=== PATIENT | female | born 1960 ===

== ENCOUNTER 2016-07-22 14:54 | Outpatient (CLI) | payer OTHER ==
--- NOTE | 2016-07-22 18:40 | DIAGNOSTIC IMAGING REPORT ---
PROCEDURE: XR CHEST 2 VIEW INDICATION: BACK PX TECHNIQUE: PA and lateral view. COMPARISON: Chest x-ray 10/04/2010 FINDINGS: Lungs are clear. Cardiovascular structures are normal. Moderate degenerative changes of the spine. No significant interval change. IMPRESSION: 1. Negative chest.
--- NOTE | 2016-07-22 18:43 | DIAGNOSTIC IMAGING REPORT ---
PROCEDURE: XR THORACIC SPINE 3 VIEWS INDICATION: BACK PX TECHNIQUE: Three views. COMPARISON: None. FINDINGS: Mild dextroscoliosis with moderate degenerative changes. Normal alignment without fracture. Paraspinal soft tissues are normal. IMPRESSION: 1. Mild dextroscoliosis with moderate degenerative changes
--- NOTE | 2016-07-22 18:52 | DIAGNOSTIC IMAGING REPORT ---
PROCEDURE: XR CERVICAL SPINE 4 OR 5 VIEW INDICATION: LEFT ARM PAIN TECHNIQUE: Five views. COMPARISON: None. FINDINGS: There is spondylosis at C5-6 with the disc space narrowing and spur formation. No evidence of an acute process or fracture. Neural foramina are normal. IMPRESSION: 1. Spondylosis C5-6. No foraminal impingement.
== END 2016-07-22 23:00 ==
LOC: XR SRH 14:54
DX: M51.34 Other intervertebral disc degeneration, thoracic region (principal); M50.323 Other cervical disc degeneration at C6-C7 level; M50.31 Other cervical disc degeneration, high cervical region; M79.602 Pain in left arm

== ENCOUNTER 2016-10-12 14:28 | Outpatient (CLI) | payer OTHER ==
--- NOTE | 2016-10-12 15:17 | DIAGNOSTIC IMAGING REPORT ---
PROCEDURE: XR KNEE 3 VIEWS - RIGHT INDICATION: RT KNEE PAIN TECHNIQUE: Four views. COMPARISON: None. FINDINGS: Mild right patellofemoral compartment degenerative changes. No fracture or dislocation. There is a small suprapatellar effusion. IMPRESSION: 1. Small effusion which may indicate internal derangement 2. Mild patellofemoral compartment degenerative changes
--- NOTE | 2016-10-12 15:43 | DIAGNOSTIC IMAGING REPORT ---
PROCEDURE: US VENOUS - RIGHT EXT INDICATION: RLE PAIN,R/O DVT TECHNIQUE: Duplex sonography of the deep venous system in the right lower extremity was performed. Compression and augmentation techniques were used. COMPARISON: None. FINDINGS: Normal compression of the greater saphenous, common femoral, superficial femoral, popliteal, peroneal, and posterior tibial veins. Normal augmentation. There is no evidence of superficial or deep venous thrombosis. IMPRESSION: 1. Negative venous ultrasound of the right lower extremity. 2. Results discussed with Yuri Lainez.
== END 2016-10-12 23:00 ==
LOC: US SRH 14:28
DX: M79.661 Pain in right lower leg (principal); M25.461 Effusion, right knee

== ENCOUNTER 2016-11-10 13:30 | Emergency (ER) | payer OTHER ==
--- NOTE | 2016-11-10 14:00 | DIAGNOSTIC IMAGING REPORT ---
PROCEDURE: XR CHEST 1 VIEW INDICATION: CHEST PAIN TECHNIQUE: Portable AP view 01:51 p.m. COMPARISON: Chest 07/22/2016 and 10/04/2010 FINDINGS: Lungs are clear. Heart and mediastinum are normal. Thorax is normal. IMPRESSION: 1. Negative chest.
--- NOTE | 2016-11-10 17:15 | ED CLINICAL REPORT ---
Clinical Report - Phys[facility] [address] [place] [address] 11/10/2016 13:30 Patient: LIA WEIR Time Seen: 1333; upon arrival, initial patient contact, initial documentation, patient care assumed. Arrived- By ambulance. Historian- patient and EMS personnel. HISTORY OF PRESENT ILLNESS Chief Complaint: CHEST PAIN and DISCOMFORT. At its maximum, severity described as moderate. When seen in the E.D., severity described as moderate. Modifying factors. Not worsened by anything. Not relieved by anything. This started today about 2 hours ago BREAKDOWN PERSON and is still present. Onset during rest. It is described as pressure and tightness and it is described as located in the central chest and left chest area. No radiation. No nausea, vomiting or diaphoresis. She has had mild difficulty breathing. No additional chest pain. (was riding in car to drs office for trouble breathing and anxiety, and chest started to hurt, so 911 called). Similar symptoms previously: None. Recent medical care: Not recently seen/assessed. REVIEW OF SYSTEMS All systems otherwise negative, except as recorded above. PAST HISTORY See nurses notes. PROBLEMS: Abdominal Pain. Immunizations. Contusion. Back Pain. LNMP - Last Normal Menstrual Period. Anxiety Reaction. Superficial Thrombophlebitis. --13:47 Pj La R.N. Abdominal Muscle Strain [RuleOut]. --13:47 Pj La R.N. SOCIAL HISTORY Never smoker. No recent travel. Is a local resident. She lives with spouse. FAMILY HISTORY Negative. ADDITIONAL NOTES The nursing notes have been reviewed with agreement regarding the chief complaint, HPI, ROS, PMH and patient medications and allergies. PHYSICAL EXAM Vital Signs: 11/10/2016 13:41 BP: 140/83. HR: 80. RR: 18. O2 saturation: 99%. Have been reviewed as normal and appear to be correct. Appearance: Alert. Oriented X3. No acute distress. Eyes: Pupils equal, round and reactive to light. Eyes normal inspection. Neck: Normal inspection. Neck supple. CVS: Normal heart rate and rhythm. Heart sounds normal. Pulses normal. Respiratory: No respiratory distress. Breath sounds normal. Chest nontender. Abdomen: Soft and nontender. Back: Normal external inspection. Skin: Skin warm and dry. Normal skin color. No rash. Normal skin turgor. Extremities: Extremities exhibit normal ROM. No lower extremity edema. Neuro: Oriented X 3. No motor deficit. No sensory deficit. LABS, X-RAYS, AND EKG EKG: EKG time: (1352). No acute process. No acute ischemia. Normal EKG. Rate: 82. The study has been interpreted contemporaneously by me (and Dr Sewell). The EKG appears to be a good tracing. Interpretation time: 1354. Chest X-ray: Normal Chest X-Ray. (IMPRESSION: 1. Negative chest. Electronically Final signed by:Dominic Bartholomew MD 11/10/2016 2:00:32 PM). The X-rays were interpreted by the radiologist and contemporaneously by me. Laboratory Tests: UA-Culture if indicated: (ALLY: 11/10/2016 14:15) ( MsgRcvd 11/10/2016 14:56) Final results Test Result Flag Units (Reference) URINE COLOR STRAW URINE APPEARANCE CLEAR URINE GLUCOSE NEGATIVE (NEGATIVE) URINE BILIRUBIN NEGATIVE (NEGATIVE) URINE KETONE NEGATIVE (NEGATIVE) URINE SPECIFIC GRAVITY 1.010 (1.010-1.030) URINE PH 7.5 (5.0-8.0) URINE PROTEIN NEGATIVE (NEGATIVE) URINE UROBILINOGEN 0.2 EU/dL (0.2-1.0) URINE NITRITE NEGATIVE (NEGATIVE) URINE BLOOD TRACE-INTACT (NEGATIVE) URINE LEUK ESTERASE NEGATIVE (NEGATIVE) URINE RBC 0-1 rbc/hpf (0-1) URINE WBC RARE wbc/hpf (0-1) URINE EPITHELIAL CELLS 0-1 EPI/hpf (0-5) URINE BACTERIA NONE SEEN (NONE SEEN) URINE COMMENT CULT NOT INDICATED URINE CULTURES ARE SET-UP BASED ON THE FOLLOWING CRITERIA:POSITIVE NITRITEPOSITIVE LEUKOCYTE ESTERASEGREATER THAN 10 WHITE BLOOD CELLSMODERATE (2+) OR GREATER BACTERIA Serum Qualitative: (ALLY: 11/10/2016 14:00) ( [facility] 11/10/2016 14:26) Final results Test Result Flag Units (Reference) , SERUM NEGATIVE CBC w Diff: (ALLY: 11/10/2016 14:00) ( [facility] 11/10/2016 14:17) Final results Test Result Flag Units (Reference) WHITE BLOOD COUNT 7.6 K/uL (4.5-11.5) RED BLOOD COUNT 4.59 M/uL (4.00-5.20) HEMOGLOBIN 13.3 gm/dL (12.0-16.0) HEMATOCRIT 40.0 % (36.0-46.0) MEAN CELL VOLUME 87 fL (80-100) MEAN CORPUSCULAR HGB 29 pg (26-34) MEAN CORPUSCULAR HGB CONC 33 g/dL (31-37) RED CELL DISTRIBUTION WIDTH 12.8 % (11.6-14.8) PLATELET COUNT 278 K/uL (150-400) NEUTROPHIL % 52.0 % (50-75) LYMPH % 30.0 % (25-40) MONO % 4.6 % (3-14) EOSINOPHIL % 12.9 H % (0-4) BASOPHIL % 0.5 % (0-2) [id number]: (ALYL: 11/10/2016 14:00) ( [facility] 11/10/2016 14:27) Final results Test Result Flag Units (Reference) D-DIMER QUANTITATIVE < 0.27 L ug/mLFEU (0.27-0.52) The primary value of this quantitative assay relates toits negative predictive value (i.e. exclusion) of pulmonaryembolism/deep vein thrombosis/DIC.Elevated levels of d-dimer may also occur with:, age, cancer, inflammation, liver disease,post-op, infection, hematoma, coronary disease, peripheralarteriopathy, bleeding disorders and thrombolytic treatment.Results should be correlated with other clinical andradiological data.Testing Methodology: Latex Immunoassay CPK: (ALLY: 11/10/2016 16:30) ( [facility] 11/10/2016 17:05) Final results Test Result Flag Units (Reference) CPK 84 U/L (24-260) TROPONIN I <0.05 ng/mL (0.00-1.5) TROPONIN REFERENCE RANGE:<0.1 NEGATIVE0.1-1.5 INDETERMINANT>1.5 POSITIVE CMP: (ALLY: 11/10/2016 14:00) ( MsgRcvd 11/10/2016 14:38) Final results Test Result Flag Units (Reference) GLUCOSE 95 mg/dL (70-110) BUN 14 mg/dL (7-18) CREATININE 0.6 mg/dL (0.6-1.3) Estimated GFR >60 mL/min Estimated GFR- >60 mL/min Note: Persistent reduction over 3 months in eGFR<60 mL/min/1.73 m2 defines CKD. Patients with eGFR values>=60 mL/min/1.73 m2 may also have CKD if evidence ofpersistent proteinuria. Additional information may be foundat [email or web address].org. SODIUM 144 mmol/L (136-145) POTASSIUM 3.7 mmol/L (3.5-5.1) CHLORIDE 109 H mmol/L (98-107) CARBON DIOXIDE 24 mmol/L (21-32) CALCIUM 8.7 mg/dL (8.5-10.1) TOTAL PROTEIN 7.7 g/dL (6.4-8.2) ALBUMIN 3.7 g/dL (3.3-5.0) BILIRUBIN, TOTAL 0.3 mg/dL (0.0-1.0) ALKALINE PHOSPHATASE 106 U/L (46-116) AST (SGOT) 19 U/L (15-37) ALT (SGPT) 22 U/L (12-78) CPK 90 U/L (24-260) TROPONIN I <0.05 L ng/mL (0.00-1.5) TROPONIN REFERENCE RANGE:<0.1 NEGATIVE0.1-1.5 INDETERMINANT>1.5 POSITIVE . PROGRESS AND PROCEDURES Course of Care: 13:57 11/10/16. pt has mega, nothing alarming, see report for full details. Patient and family counseled in person regarding the patient's stable condition, test results and diagnosis. 17:14. Differential Diagnosis: I considered muscle strain, costochondritis, myositis, pleurisy, intermediate coronary syndrome, unstable angina, angina, aortic dissection, mitral valve prolapse, pericarditis, palpitations, pulmonary embolism, lung cancer, gastroesophageal reflux disease, esophagitis and esophageal spasm as a possible cause of chest pain in this patient. This is a partial list of diagnoses considered. (anxiety, substance abuse). Above considerations are based on history, physical exam, reassessment, laboratory data, X-Ray data and EKG. Differential diagnosis was discussed with patient. Disposition: Discharged home in good and improved condition (17:15). Condition: good and stable. CLINICAL IMPRESSION Precordial chest pain characterized as "discomfort", "pressure" and "tightness" .12 lead EKG performed. INSTRUCTIONS Warnings: GENERAL WARNINGS: Return or contact your physician immediately if your condition worsens or changes unexpectedly, if not improving as expected, or if other problems arise. SPECIFICALLY, return if you develop chest, neck, jaw, shoulder, arm, or back pain, difficulty breathing, a fluttering sensation in your chest, lightheadedness, fainting, excessive fatigue, or sudden sweating. Follow-up: Follow up with your doctor in about two days even if well. Call for an appointment. Summary of care provided to patient and family. Understanding of the discharge instructions verbalized by patient. (Electronically signed by Dalia Christina A.R.N.P. 11/10/2016 18:36)
--- NOTE | 2016-11-10 17:15 | ED NURSING NOTES ---
Clinical Report - [facility] [place] [address] 11/10/2016 13:30 Patient: LIA WEIR TRIAGE Triage time 13:35 Nov 10 2016. Acuity: LEVEL 3. Chief Complaint: CHEST PAIN and DISCOMFORT and SHORTNESS OF BREATH. Alert. SEPSIS SCREEN: Sepsis Screen. Negative (no infection suspected/documented). HAZEL COMA SCORE: Hazel Coma Scale: 15- eyes open spontaneously (4); best verbal response- oriented x 4 (5); best motor response- obeys commands (6). --13:49 Pj La R.N. 13:41 11/10/16. BP: 140/83. HR: 80. RR: 18. O2 saturation: 99% on room air. --13:49 Pj La R.N. 13:40 11/10/16. Temp: 98.2 F. Pain level now: 02/04. --20:06 Pj La R.N. Weight: 90.7 kg stated. Height/Length: 63 inches Per Patient. BMI: 35.4. --13:43 Pj La R.N. Medications Clonazepam Oral 0.5 mg, as needed (for anxiety). Motrin Oral 800 mg, 3x a day. Nitroglycerin Sublingual 0.4 mg, PRN. Omeprazole Oral 40 mg, daily. --13:46 Pj La R.N. BuPROPion HCl Oral 300mg, daily. HydrOXYzine HCl Oral 25 mg, 4x a day. Naproxen Oral 200 mg 2 tabs, 3x a day. TraZODone HCl Oral 50 mg 1-2 tabs, at bedtime. --14:23 Pj La R.N. Allergies No Known Drug Allergy. --13:46 Pj La R.N. Medication/allergy information source: the patient. --13:49 Pj La R.N. History Arrived by EMS, and (MEDIC 46). Historian: spouse and patient. Accompanied by spouse. ( Chest Pressure associated with SOB. Pt states pain is located to the (L) Axilla region). This started today. Onset. (about 2 hours ago). She has had difficulty breathing. Treatment TRAIN RESERVATION CLERK: (IV Filed start by EMS). PAST MEDICAL HX: Immunizations: status is unknown. The patient is post-menopausal. SURGERY HX: No history of previous surgery. SOCIAL HX: Never smoker. No alcohol use or drug use. No infectious disease exposure. ABUSE ASSESSMENT: No report of abuse. FALL RISK ASSESSMENT: Fall risk assessment completed. No fall risk identified. NUTRITIONAL RISK ASSESSMENT: The nutritional risk assessment revealed no deficiencies. FUNCTIONAL ASSESSMENT: Functional assessment: no impairments noted. LEARNING NEEDS ASSESSMENT: The learning needs assessment revealed no barriers. SKIN INTEGRITY ASSESSMENT: Skin integrity risk assessment completed. No skin integrity risk identified. --13:49 Pj La R.N. PROBLEMS: Abdominal Pain. Immunizations. Contusion. Back Pain. LNMP - Last Normal Menstrual Period. Anxiety Reaction. Superficial Thrombophlebitis. --13:47 Pj La R.N. Abdominal Muscle Strain [RuleOut]. --13:47 Pj La R.N. ADDITIONAL SURGERIES: no known surgeries. Interventions ID band on patient. To treatment room. --13:49 Pj La R.N. PHYSICAL ASSESSMENT GENERAL / NEURO / PSYCH: Alert. HEENT: Mucous membranes are pink. RESPIRATORY: Respirations not labored. CVS: Normal sinus rhythm noted. GI / : Abdomen soft. EXTREMITIES: No lower extremity edema. SKIN: Skin is warm and dry. Normal skin turgor. --14:07 Pj La R.N. 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 Patient gowned. Reassurance given to the patient and patient's family. Patient identifiers checked. Call light placed in reach. Side rails up x 2. Bed placed in lowest position. Brakes of bed on. Patient ready for evaluation- chart flagged and ED physician notified. --14:08 Pj La R.N. 13:45 11/10/2016 Site #1 started prior to arrival by EMS via IV in the right antecubital space with an 20g angiocath; one attempt. --14:10 Pj La R.N. 14:00 11/10/16. Patient ID band checked for patient name, birthdate and medical record number: family confirmed. Blood samples drawn from the right antecubital space peripheral IV site by nurse per protocol: rainbow set: cardiac enzymes (1st set). Line flushed with 10 mL normal saline post blood draw. --14:09 Pj La R.N. 14:19 11/10/2016 Aspirin PO Tablets 325 mg given. Allergies verified and confirmed 5 rights. --14:29 Pj La R.N. EKG time: (5072). EKG was ordered, performed by a tech and shown to the ED physician. --14:48 Roz Cottrell ER Tech1 Patient ID band checked for patient name and birthdate: patient confirmed. Instructions provided to collect clean catch urine and patient verbalized understanding. Clean catch urine collected with return of yellow-colored clear urine; sample sent to lab for urinalysis and culture. Specimen labeled in the presence of the patient. --14:48 Roz Cottrell ER Tech1 <<STRICKEN ENTRY-- 14:30 11/10/16. BP: 109/72. HR: 85. RR: 16. O2 saturation: 97% on room air. Pain level now: 10/05. Additional comments: Back Pain. --15:02 Pj La R.N. --END STRIKE>> Correction. --15:02 Pj La R.N. 15:02 11/10/16. BP: 109/72. HR: 76. RR: 16. O2 saturation: 97% on room air. --15:03 Pj La R.N. 16:08 11/10/16. BP: 116/72. HR: 81. RR: 16. O2 saturation: 97% on room air. --16:09 Pj La R.N. 17:00 11/10/16. BP: 130/78. HR: 81. RR: 16. O2 saturation: 97%. Pain level now: 08/07. --19:55 Pj La R.N. DISPOSITION / DISCHARGE Departure time: 1830. --19:53 Pj La R.N. 18:25 11/10/16. BP: 128/77. HR: 78. RR: 16. O2 saturation: 98% on room air. Temp: 98.6 F. Pain level now: 07/07. --20:03 Pj La R.N. 18:30. Condition at departure: improved. No learning barriers present. Discharge instructions provided and reviewed with the family. Reviewed medication(s) (continue your usually prescribed medications). Reviewed referral to family practice for followup. Patient verbalized understanding. Written instructions provided in French. The patient was discharged by the physician. She was discharged home and accompanied by family. She left the Emergency Department ambulatory and via private vehicle. Family member driving. FALL RISK ASSESSMENT: Fall risk assessment completed. No fall risk identified. --20:05 Pj La R.N. Locked/Released at 11/10/2016 20:07 by Pj La R.N.
--- NOTE | 2016-11-10 17:15 | ED CLINICAL REPORT ---
Clinical Report - Physicians/Mid Levels [facility] [address] [place] [address] 11/10/2016 13:30 Patient: LIA WEIR Time Seen: 1333; upon arrival, initial patient contact, initial documentation, patient care assumed. Arrived- By ambulance. Historian- patient and EMS personnel. HISTORY OF PRESENT ILLNESS Chief Complaint: CHEST PAIN and DISCOMFORT. At its maximum, severity described as moderate. When seen in the E.D., severity described as moderate. Modifying factors. Not worsened by anything. Not relieved by anything. 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 Onset during rest. It is described as pressure and tightness and it is described as located in the central chest and left chest area. No radiation. No nausea, vomiting or diaphoresis. She has had mild difficulty breathing. No additional chest pain. (was riding in car to drs office for trouble breathing and anxiety, and chest started to hurt, so 911 called). Similar symptoms previously: None. Recent medical care: Not recently seen/assessed. REVIEW OF SYSTEMS All systems otherwise negative, except as recorded above. PAST HISTORY See nurses notes. PROBLEMS: Abdominal Pain. Immunizations. Contusion. Back Pain. LNMP - Last Normal Menstrual Period. Anxiety Reaction. Superficial Thrombophlebitis. --13:47 Pj La R.N. Abdominal Muscle Strain [RuleOut]. --13:47 Pj La R.N. SOCIAL HISTORY Never smoker. No recent travel. Is a local resident. She lives with spouse. FAMILY HISTORY Negative. ADDITIONAL NOTES The nursing notes have been reviewed with agreement regarding the chief complaint, HPI, ROS, PMH and patient medications and allergies. PHYSICAL EXAM Vital Signs: 11/10/2016 13:41 BP: 140/83. HR: 80. RR: 18. O2 saturation: 99%. Have been reviewed as normal and appear to be correct. Appearance: Alert. Oriented X3. No acute distress. Eyes: Pupils equal, round and reactive to light. Eyes normal inspection. Neck: Normal inspection. Neck supple. CVS: Normal heart rate and rhythm. Heart sounds normal. Pulses normal. Respiratory: No respiratory distress. Breath sounds normal. Chest nontender. Abdomen: Soft and nontender. Back: Normal external inspection. Skin: Skin warm and dry. Normal skin color. No rash. Normal skin turgor. Extremities: Extremities exhibit normal ROM. No lower extremity edema. Neuro: Oriented X 3. No motor deficit. No sensory deficit. LABS, X-RAYS, AND EKG EKG: EKG time: (1352). No acute process. No acute ischemia. Normal EKG. Rate: 82. The study has been interpreted contemporaneously by me (and Dr Sewell). The EKG appears to be a good tracing. Interpretation time: 1354. Chest X-ray: Normal Chest X-Ray. (IMPRESSION: 1. Negative chest. Electronically Final signed by:Dominic Bartholomew MD 11/10/2016 2:00:32 PM). The X-rays were interpreted by the radiologist and contemporaneously by me. Laboratory Tests: UA-Culture if indicated: (ALLY: 11/10/2016 14:15) ( MsgRcvd 11/10/2016 14:56) Final results Test Result Flag Units (Reference) URINE COLOR STRAW URINE APPEARANCE CLEAR URINE GLUCOSE NEGATIVE (NEGATIVE) URINE BILIRUBIN NEGATIVE (NEGATIVE) URINE KETONE NEGATIVE (NEGATIVE) URINE SPECIFIC GRAVITY 1.010 (1.010-1.030) URINE PH 7.5 (5.0-8.0) URINE PROTEIN NEGATIVE (NEGATIVE) URINE UROBILINOGEN 0.2 EU/dL (0.2-1.0) URINE NITRITE NEGATIVE (NEGATIVE) URINE BLOOD TRACE-INTACT (NEGATIVE) URINE LEUK ESTERASE NEGATIVE (NEGATIVE) URINE RBC 0-1 rbc/hpf (0-1) URINE WBC RARE wbc/hpf (0-1) URINE EPITHELIAL CELLS 0-1 EPI/hpf (0-5) URINE BACTERIA NONE SEEN (NONE SEEN) URINE COMMENT CULT NOT INDICATED URINE CULTURES ARE SET-UP BASED ON THE FOLLOWING CRITERIA:POSITIVE NITRITEPOSITIVE LEUKOCYTE ESTERASEGREATER THAN 10 WHITE BLOOD CELLSMODERATE (2+) OR GREATER BACTERIA Serum Qualitative: (ALLY: 11/10/2016 14:00) ( [facility] 11/10/2016 14:26) Final results Test Result Flag Units (Reference) , SERUM NEGATIVE CBC w Diff: (ALLY: 11/10/2016 14:00) ( [facility] 11/10/2016 14:17) Final results Test Result Flag Units (Reference) WHITE BLOOD COUNT 7.6 K/uL (4.5-11.5) RED BLOOD COUNT 4.59 M/uL (4.00-5.20) HEMOGLOBIN 13.3 gm/dL (12.0-16.0) HEMATOCRIT 40.0 % (36.0-46.0) MEAN CELL VOLUME 87 fL (80-100) MEAN CORPUSCULAR HGB 29 pg (26-34) MEAN CORPUSCULAR HGB CONC 33 g/dL (31-37) RED CELL DISTRIBUTION WIDTH 12.8 % (11.6-14.8) PLATELET COUNT 278 K/uL (150-400) NEUTROPHIL % 52.0 % (50-75) LYMPH % 30.0 % (25-40) MONO % 4.6 % (3-14) EOSINOPHIL % 12.9 H % (0-4) BASOPHIL % 0.5 % (0-2) [id number]: (ALLY: 11/10/2016 14:00) ( [facility] 11/10/2016 14:27) Final results Test Result Flag Units (Reference) D-DIMER QUANTITATIVE < 0.27 L ug/mLFEU (0.27-0.52) The primary value of this quantitative assay relates toits negative predictive value (i.e. exclusion) of pulmonaryembolism/deep vein thrombosis/DIC.Elevated levels of d-dimer may also occur with:, age, cancer, inflammation, liver disease,post-op, infection, hematoma, coronary disease, peripheralarteriopathy, bleeding disorders and thrombolytic treatment.Results should be correlated with other clinical andradiological data.Testing Methodology: Latex Immunoassay CPK: (ALLY: 11/10/2016 16:30) ( [facility] 11/10/2016 17:05) Final results Test Result Flag Units (Reference) CPK 84 U/L (24-260) TROPONIN I <0.05 ng/mL (0.00-1.5) TROPONIN REFERENCE RANGE:<0.1 NEGATIVE0.1-1.5 INDETERMINANT>1.5 POSITIVE CMP: (ALLY: 11/10/2016 14:00) ( MsgRcvd 11/10/2016 14:38) Final results Test Result Flag Units (Reference) GLUCOSE 95 mg/dL (70-110) BUN 14 mg/dL (7-18) CREATININE 0.6 mg/dL (0.6-1.3) Estimated GFR >60 mL/min Estimated GFR- >60 mL/min Note: Persistent reduction over 3 months in eGFR<60 mL/min/1.73 m2 defines CKD. Patients with eGFR values>=60 mL/min/1.73 m2 may also have CKD if evidence ofpersistent proteinuria. Additional information may be foundat [email or web address].org. SODIUM 144 mmol/L (136-145) POTASSIUM 3.7 mmol/L (3.5-5.1) CHLORIDE 109 H mmol/L (98-107) CARBON DIOXIDE 24 mmol/L (21-32) CALCIUM 8.7 mg/dL (8.5-10.1) TOTAL PROTEIN 7.7 g/dL (6.4-8.2) ALBUMIN 3.7 g/dL (3.3-5.0) BILIRUBIN, TOTAL 0.3 mg/dL (0.0-1.0) ALKALINE PHOSPHATASE 106 U/L (46-116) AST (SGOT) 19 U/L (15-37) ALT (SGPT) 22 U/L (12-78) CPK 90 U/L (24-260) TROPONIN I <0.05 L ng/mL (0.00-1.5) TROPONIN REFERENCE RANGE:<0.1 NEGATIVE0.1-1.5 INDETERMINANT>1.5 POSITIVE . PROGRESS AND PROCEDURES Course of Care: 13:57 11/10/16. pt has mega, nothing alarming, see report for full details. Patient and family counseled in person regarding the patient's stable condition, test results and diagnosis. 17:14. Differential Diagnosis: I considered muscle strain, costochondritis, myositis, pleurisy, intermediate coronary syndrome, unstable angina, angina, aortic dissection, mitral valve prolapse, pericarditis, palpitations, pulmonary embolism, lung cancer, gastroesophageal reflux disease, esophagitis and esophageal spasm as a possible cause of chest pain in this patient. This is a partial list of diagnoses considered. (anxiety, substance abuse). Above considerations are based on history, physical exam, reassessment, laboratory data, X-Ray data and EKG. Differential diagnosis was discussed with patient. Disposition: Discharged home in good and improved condition (17:15). Condition: good and stable. CLINICAL IMPRESSION Precordial chest pain characterized as "discomfort", "pressure" and "tightness" .12 lead EKG performed. INSTRUCTIONS Warnings: GENERAL WARNINGS: Return or contact your physician immediately if your condition worsens or changes unexpectedly, if not improving as expected, or if other problems arise. SPECIFICALLY, return if you develop chest, neck, jaw, shoulder, arm, or back pain, difficulty breathing, a fluttering sensation in your chest, lightheadedness, fainting, excessive fatigue, or sudden sweating. Follow-up: Follow up with your doctor in about two days even if well. Call for an appointment. Summary of care provided to patient and family. Understanding of the discharge instructions verbalized by patient. (Electronically signed by Dalia Christina A.R.N.P. 11/10/2016 18:36)
--- NOTE | 2016-11-10 17:15 | ED ORDER SUMMARY ---
..... 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) (13:43 11/10/2016 HBivens A.R.N.P.) (14:09 JRomanelli R.N.) Chest 1V Urgent (13:44 11/10/2016 HBivens A.R.N.P.) (Ack 13:53 KHoerner) (14:10 JRomanelli R.N.) CBC w Diff Urgent (13:44 11/10/2016 HBivens A.R.N.P.) (Ack 13:53 KHoerner) (14:09 JRomanelli R.N.) CMP Urgent (13:44 11/10/2016 HBivens A.R.N.P.) (Ack 13:53 KHoerner) (14:09 JRomanelli R.N.) CPK Urgent (13:44 11/10/2016 HBivens A.R.N.P.) (Ack 13:53 KHoerner) (14:09 JRomanelli R.N.) Troponin-I Urgent (13:44 11/10/2016 HBivens A.R.N.P.) (Ack 13:53 KHoerner) (14:09 JRomanelli R.N.) D-Dimer Urgent (13:44 11/10/2016 HBivens A.R.N.P.) (Ack 13:53 KHoerner) (14:09 JRomanelli R.N.) Serum Qualitative Urgent (13:44 11/10/2016 HBivens A.R.N.P.) (Ack 13:53 KHoerner) (14:10 JRomanelli R.N.) EKG - ER Stat (13:44 11/10/2016 HBivens A.R.N.P.) (13:53 KHoerner) UA-Culture if indicated Urgent (14:29 11/10/2016 JRomanelli R.N. verbal order read back to HBivens A.R.N.P.) (14:30 Toñoelli R.N.) CPK Urgent (15:28 11/10/2016 HBivens A.R.N.P.) (Ack 15:31 KARINoerner) (20:06 JRomanelli R.N.) Troponin-I Urgent (15:28 11/10/2016 HBivens A.R.N.P.) (Ack 15:31 KARINoerner) (20:06 JRomanelli R.N.) MEDICATION ORDERS: Aspirin PO 325 mg (Do not crush or chew, NOW) (13:43 11/10/2016 HBivens A.R.N.P.) (14:29 omanelli R.N.) IV FLUIDS: IV Saline Lock (13:44 11/10/2016 HBivens A.R.N.P.) (14:10 omanelli R.N.) ORDER SHEET NOTES: [Electronically signed by Dalia ChristinaR.N.P. (18:36 11/10/2016)] [Electronically signed by Pj La R.N. (20:07 11/10/2016)] [Electronically locked/signed by Pj La R.N. (20:07 11/10/2016)]
--- NOTE | 2016-11-10 17:15 | ED NURSING NOTES ---
Clinical Report - Nurses [facility] [address] [address] 11/10/2016 13:30 Patient: LIA WEIR TRIAGE Triage time 13:35 Nov 10 2016. Acuity: LEVEL 3. Chief Complaint: CHEST PAIN and DISCOMFORT and SHORTNESS OF BREATH. Alert. SEPSIS SCREEN: Sepsis Screen. Negative (no infection suspected/documented). HAZEL COMA SCORE: Hazel Coma Scale: 15- eyes open spontaneously (4); best verbal response- oriented x 4 (5); best motor response- obeys commands (6). --13:49 Pj La R.N. 13:41 11/10/16. BP: 140/83. HR: 80. RR: 18. O2 saturation: 99% on room air. --13:49 Pj La R.N. 13:40 11/10/16. Temp: 98.2 F. Pain level now: 02/04. --20:06 Pj La R.N. Weight: 90.7 kg stated. Height/Length: 63 inches Per Patient. BMI: 35.4. --13:43 Pj La R.N. Medications Clonazepam Oral 0.5 mg, as needed (for anxiety). Motrin Oral 800 mg, 3x a day. Nitroglycerin Sublingual 0.4 mg, PRN. Omeprazole Oral 40 mg, daily. --13:46 Pj La R.N. BuPROPion HCl Oral 300mg, daily. HydrOXYzine HCl Oral 25 mg, 4x a day. Naproxen Oral 200 mg 2 tabs, 3x a day. TraZODone HCl Oral 50 mg 1-2 tabs, at bedtime. --14:23 Pj La R.N. Allergies No Known Drug Allergy. --13:46 Pj La R.N. Medication/allergy information source: the patient. --13:49 Pj La R.N. History Arrived by EMS, and (MEDIC 46). Historian: spouse and patient. Accompanied by spouse. ( Chest Pressure associated with SOB. Pt states pain is located to the (L) Axilla region). This started today. Onset. (about 2 hours ago). She has had difficulty breathing. 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 PAST MEDICAL HX: Immunizations: status is unknown. The patient is post-menopausal. SURGERY HX: No history of previous surgery. SOCIAL HX: Never smoker. No alcohol use or drug use. No infectious disease exposure. ABUSE ASSESSMENT: No report of abuse. FALL RISK ASSESSMENT: Fall risk assessment completed. No fall risk identified. NUTRITIONAL RISK ASSESSMENT: The nutritional risk assessment revealed no deficiencies. FUNCTIONAL ASSESSMENT: Functional assessment: no impairments noted. LEARNING NEEDS ASSESSMENT: The learning needs assessment revealed no barriers. SKIN INTEGRITY ASSESSMENT: Skin integrity risk assessment completed. No skin integrity risk identified. --13:49 Pj La R.N. PROBLEMS: Abdominal Pain. Immunizations. Contusion. Back Pain. LNMP - Last Normal Menstrual Period. Anxiety Reaction. Superficial Thrombophlebitis. --13:47 Pj La R.N. Abdominal Muscle Strain [RuleOut]. --13:47 Pj La R.N. ADDITIONAL SURGERIES: no known surgeries. Interventions ID band on patient. To treatment room. --13:49 Pj La R.N. PHYSICAL ASSESSMENT GENERAL / NEURO / PSYCH: Alert. HEENT: Mucous membranes are pink. RESPIRATORY: Respirations not labored. CVS: Normal sinus rhythm noted. GI / : Abdomen soft. EXTREMITIES: No lower extremity edema. SKIN: Skin is warm and dry. Normal skin turgor. --14:07 Pj La R.N. NURSING PROGRESS NOTES monitoring manager, pulse oximeter and NIBP monitor placed on patient; bus driver/monitor- Lead II and V1; monitor alarms on. Patient gowned. Reassurance given to the patient and patient's family. Patient identifiers checked. Call light placed in reach. Side rails up x 2. Bed placed in lowest position. Brakes of bed on. Patient ready for evaluation- chart flagged and ED physician notified. --14:08 Pj La R.N. 13:45 11/10/2016 Site #1 started prior to arrival by EMS via IV in the right antecubital space with an 20g angiocath; one attempt. --14:10 Pj La R.N. 14:00 11/10/16. Patient ID band checked for patient name, birthdate and medical record number: family confirmed. Blood samples drawn from the right antecubital space peripheral IV site by nurse per protocol: rainbow set: cardiac enzymes (1st set). Line flushed with 10 mL normal saline post blood draw. --14:09 Pj La R.N. 14:19 11/10/2016 Aspirin PO Tablets 325 mg given. Allergies verified and confirmed 5 rights. --14:29 Pj La R.N. EKG time: (4662). EKG was ordered, performed by a tech and shown to the ED physician. --14:48 Roz Cottrell ER Tech1 Patient ID band checked for patient name and birthdate: patient confirmed. Instructions provided to collect clean catch urine and patient verbalized understanding. Clean catch urine collected with return of yellow-colored clear urine; sample sent to lab for urinalysis and culture. Specimen labeled in the presence of the patient. --14:48 Roz Cottrell ER Tech1 <<STRICKEN ENTRY-- 14:30 11/10/16. BP: 109/72. HR: 85. RR: 16. O2 saturation: 97% on room air. Pain level now: 10/05. Additional comments: Back Pain. --15:02 Pj La R.N. --END STRIKE>> Correction. --15:02 Pj La R.N. 15:02 11/10/16. BP: 109/72. HR: 76. RR: 16. O2 saturation: 97% on room air. --15:03 Pj La R.N. 16:08 11/10/16. BP: 116/72. HR: 81. RR: 16. O2 saturation: 97% on room air. --16:09 Pj La R.N. 17:00 11/10/16. BP: 130/78. HR: 81. RR: 16. O2 saturation: 97%. Pain level now: 08/07. --19:55 Pj La R.N. DISPOSITION / DISCHARGE Departure time: 1830. --19:53 Pj La R.N. 18:25 11/10/16. BP: 128/77. HR: 78. RR: 16. O2 saturation: 98% on room air. Temp: 98.6 F. Pain level now: 07/07. --20:03 Pj La R.N. 18:30. Condition at departure: improved. No learning barriers present. Discharge instructions provided and reviewed with the family. Reviewed medication(s) (continue your usually prescribed medications). Reviewed referral to family practice for followup. Patient verbalized understanding. Written instructions provided in Slovak. The patient was discharged by the physician. She was discharged home and accompanied by family. She left the Emergency Department ambulatory and via private vehicle. Family member driving. FALL RISK ASSESSMENT: Fall risk assessment completed. No fall risk identified. --20:05 Pj La R.N. Locked/Released at 11/10/2016 20:07 by Pj La R.N.
--- NOTE | 2016-11-10 17:15 | ED ORDER SUMMARY ---
..... 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P.) (Ack 13:53 KHoerner) (14:09 JRomanelli R.N.) Serum Qualitative Urgent (13:44 11/10/2016 HBivens A.R.N.P.) (Ack 13:53 KHoerner) (14:10 JRomanelli R.N.) EKG - ER Stat (13:44 11/10/2016 HBivens A.R.N.P.) (13:53 KHoerner) UA-Culture if indicated Urgent (14:29 11/10/2016 JRomanelli R.N. verbal order read back to HBivens A.R.N.P.) (14:30 Toñoelli R.N.) CPK Urgent (15:28 11/10/2016 HBivens A.R.N.P.) (Ack 15:31 KARINoerner) (20:06 JRomanelli R.N.) Troponin-I Urgent (15:28 11/10/2016 HBivens A.R.N.P.) (Ack 15:31 KARINoerner) (20:06 JRomanelli R.N.) MEDICATION ORDERS: Aspirin PO 325 mg (Do not crush or chew, NOW) (13:43 11/10/2016 HBivens A.R.N.P.) (14:29 omanelli R.N.) IV FLUIDS: IV Saline Lock (13:44 11/10/2016 HBivens A.R.N.P.) (14:10 omanelli R.N.) ORDER SHEET NOTES: [Electronically signed by Dalia ChristinaR.N.P. (18:36 11/10/2016)] [Electronically signed by Pj La R.N. (20:07 11/10/2016)] [Electronically locked/signed by Pj La R.N. (20:07 11/10/2016)]
--- NOTE | 2016-11-10 20:07 | ED MAR SUMMARY ---
..... Medication Administration Record [facility] [address] [place] [address] Patient: LIA WEIR Visit ID: [id number] 55y, F Weight: 90.7 kg Height/Length: 63 in BMI: 35.4 ALLERGIES: No Known Drug Allergy Given 14:19 11/10/2016 Pj La R.N. Medication Administered: ASPIRIN [PO], Dose: 325 mg Tablets PO. Medication Ordered: Aspirin PO 325 mg (Do not crush or chew, NOW).
--- NOTE | 2016-11-10 20:07 | ED MAR SUMMARY ---
..... Medication Administration Record [facility] [address] [place] [address] Patient: LIA WEIR Visit ID: [id number] 55y, F Weight: 90.7 kg Height/Length: 63 in BMI: 35.4 ALLERGIES: No Known Drug Allergy Given 14:19 11/10/2016 Pj La R.N. Medication Administered: ASPIRIN [PO], Dose: 325 mg Tablets PO. Medication Ordered: Aspirin PO 325 mg (Do not crush or chew, NOW).
--- NOTE | 2016-11-10 20:07 | ED DISCHARGE INSTRUCTIONS ---
Patient: LIA WEIR General Instructions [facility] VisitID: [id number] [address] [place] [address] 55y, F Registration Date/Time: 11/10/2016 Precordial chest pain characterized as "discomfort", "pressure" and "tightness" .12 lead EKG performed. INSTRUCTIONS Warnings: GENERAL WARNINGS: Return or contact your physician immediately if your condition worsens or changes unexpectedly, if not improving as expected, or if other problems arise. SPECIFICALLY, return if you develop chest, neck, jaw, shoulder, arm, or back pain, difficulty breathing, a fluttering sensation in your chest, lightheadedness, fainting, excessive fatigue, or sudden sweating. Follow-up: Follow up with your doctor in about two days even if well. Call for an appointment. Summary of care provided to patient and family. Understanding of the discharge instructions verbalized by patient. ADDITIONAL INFORMATION Chest Pain, Uncertain Cause Chest pain can happen for a number of reasons. Sometimes the cause can not be determined. If yourcondition does not seem serious, and your pain does not appear to be coming from your heart, your doctor may recommend watching it closely. Sometimes the signs of a serious problem take more time to appear. Therefore, watch for the warning signs listed below. Home care After your visit, follow these recommendations: Rest today and avoid strenuous activity. Take any prescribed medicine as directed. Follow-up care Follow up with your doctor or this facility as instructed or if you do not start to feel better within 24 hours. Call 911 Get immediate medical attention if any of the following occur: A change in the type of pain: if it feels different, becomes more severe, lasts longer, or begins to spread into your shoulder, arm, neck, jaw or back Shortness of breath or increased pain with breathing Weakness, dizziness, or fainting Rapid heart beat Get prompt medical attention Call your doctor right away if any of the following occur: Cough with dark colored sputum (phlegm) or blood Fever of 100.4F(38C) or higher, or as directed by your health care provider Swelling, pain or redness in one leg Chest Wall Pain: Costochondritis The chest pain that you have had today is caused by Costochondritis. This condition is due to an inflammation of the cartilage joining the ribs to the breastbone. It is not caused by heart or lung problems. Although the exact cause for costochondritis is not known, it often occurs during times of emotional stress. It can be painful, but it is not dangerous. It usually disappears within one to two weeks, but may recur. Rarely, a more serious condition may cause symptoms similar to costochondritis; therefore, watch for the warning signs listed below. Home Care: If you feel that emotional stress is a cause of your condition, try to identify sources of that stress. It may not be obvious! Learn ways to deal with the stress in your life such as regular exercise, muscle relaxation, meditation, or simply taking time out for yourself. For more information about this, consult your doctor or go to a local bookstore and review books and tapes available on the subject of stress reduction. You may use acetaminophen (Tylenol) or ibuprofen (Motrin, Advil) to control pain, unless another pain medicine was prescribed. [ NOTE: If you have liver disease or ever had a stomach ulcer, talk with your doctor before using these medicines.] The use of heat (hot wet compress or heating pad) with or without local analgesic creams (Deep Heat Rub, Xu Baker) will be helpful to reduce pain. Follow Up with your doctor as directed or sooner if you do not start to improve within the next two days. Get Prompt Medical Attention if any of the following occur: A change in the type of pain: if it feels different, becomes more severe, lasts longer, or spreads into your shoulder, arm, neck, jaw or back Shortness of breath or increased pain with breathing Weakness, dizziness, or fainting Cough with dark colored sputum (phlegm) or blood Abdominal pain Dark red or black stools Fever of 100.4F (38C) or higher, or as directed by your healthcare provider Chest Pain, Noncardiac Based on your visit today, the exact cause of your chest pain is not certain. Your condition does not seem serious and your pain does not appear to be coming from your heart. However, sometimes the signs of a serious problem take more time to appear. Therefore, please watch for the warning signs listed below. Home Care: Rest today and avoid strenuous activity. Take any prescribed medicine as directed. Follow Up with your doctor or this facility as instructed or if you do not start to feel better within 24 hours. Get Prompt Medical Attention if any of the following occur: A change in the type of pain: if it feels different, becomes more severe, lasts longer, or begins to spread into your shoulder, arm, neck, jaw or back Shortness of breath or increased pain with breathing Cough with dark colored sputum (phlegm) or blood Weakness, dizziness, or fainting Fever of 100.4F (38C) or higher, or as directed by your healthcare provider Swelling, pain or redness in one leg You have been given the following additional information: Chest Pain, Uncertain Cause Chest Wall Pain, Costochondritis Chest Pain, Noncardiac (Electronically signed by Dalia Christina A.R.N.P. 11/10/2016 18:36)
--- NOTE | 2016-11-10 20:07 | ED MED RECONCILIATION SUMMARY ---
Patient: LIA WEIR Medication Reconciliation Report [facility] VisitID: [id number] [address] [place] [address] 55y, F Registration Date/Time: 11/10/2016 Weight: 90.7 kg Height/Length: 63 in. BMI: 35.4 ALLERGIES: No Known Drug Allergy The patient's Home Medications are listed below: THE FOLLOWING MEDICATIONS NEED TO BE RECONCILED: BuPROPion HCl Oral 300mg, daily Clonazepam Oral 0.5 mg, for anxiety HydrOXYzine HCl Oral 25 mg, 4x a day Motrin Oral 800 mg, 3x a day Naproxen Oral 200 mg 2 tabs, 3x a day Nitroglycerin Sublingual 0.4 mg, PRN Omeprazole Oral 40 mg, daily TraZODone HCl Oral 50 mg 1-2 tabs, at bedtime The source(s) of the original Home Medication information: patient The following Medications were given to the patient in the Emergency Department: Aspirin [PO] PO 325 mg, administered: 11/10/2016 2:19:00 PM The following Medications were prescribed to the patient: None.
--- NOTE | 2016-11-10 20:07 | ED MED RECONCILIATION SUMMARY ---
Patient: LIA WEIR Medication Reconciliation Report [facility] VisitID: [id number] [address] [place] [address] 55y, F Registration Date/Time: 11/10/2016 Weight: 90.7 kg Height/Length: 63 in. BMI: 35.4 ALLERGIES: No Known Drug Allergy The patient's Home Medications are listed below: THE FOLLOWING MEDICATIONS NEED TO BE RECONCILED: BuPROPion HCl Oral 300mg, daily Clonazepam Oral 0.5 mg, for anxiety HydrOXYzine HCl Oral 25 mg, 4x a day Motrin Oral 800 mg, 3x a day Naproxen Oral 200 mg 2 tabs, 3x a day Nitroglycerin Sublingual 0.4 mg, PRN Omeprazole Oral 40 mg, daily TraZODone HCl Oral 50 mg 1-2 tabs, at bedtime The source(s) of the original Home Medication information: patient The following Medications were given to the patient in the Emergency Department: Aspirin [PO] PO 325 mg, administered: 11/10/2016 2:19:00 PM The following Medications were prescribed to the patient: None.
== END 2016-11-10 18:30 | disposition home or self-care (01) ==
LOC: ED SRH 13:30
DX: R07.2 Precordial pain (principal)
CPT/HCPCS: 90004; 90100; 90616; 91556; 92610; 95059; 98428